=== PATIENT | male | born 1935 | race Caucasian/White ===

== ENCOUNTER 2016-06-27 06:13 | Day surgery (SDC) | payer MEDICARE, OTHER ==
[~2016-06-27 06:13] MED LIST: ALEVE220 M4 PO; AMARYL4 M1 PO; AMARYL4 MG PO; AMOXICILLIN500 M PO; AMOXICILLIN500 M2 PO; ARTIFICIAL TEAR15 M; ASPIR-LOW81 M1 PO; ASPIR-LOW81 MG PO; AUGMENTIN 875-1 EAC1 PO; CALCIUM 600 +1 EA14 PO; CALCIUM600 MG PO; CARVEDILOL3.125 MG PO; CIPRO XR500 MG; COREG3.125 M1 PO; CRESTOR10 MG; CRESTOR10 MG/TAB PO; FLOMAX0.4 M1 PO; FLONASE ALLERG9.9 ML; FLONASE16 G2 NS; GLUCOPHAGE500 M3 PO; GLUCOPHAGE500 MG PO; JANUVIA50 M1 PO; JANUVIA50 MG PO; LISINOPRIL10 M1 PO; LISINOPRIL10 MG PO; MILK OF MAGNESIA PO; MULTIVITAMIN1 CAP; PRAVASTATIN SOD40 M1 PO; RESTFUL LEGS PO; SULFAMYLON SOL250 M1 TOP; TRIAMCINOLONE A15 G2 TOP; TRIAMCINOLONE A15 GM TOP; ULTRAM50 M1 PO; XARELTO10 M1 PO
[2016-06-27 07:11] LABS: BASO % 0.2 % (0-2); EOS % 1.6 % (0-7); EOSINOPHIL ABSOLUTE COUNT 0.2 tho/cmm (0.0-0.7); HCT-HEMATOCRIT 42.1 % (36.0-53.5); HGB-HEMOGLOBIN 14.3 gm/dl (13.5-17.0); IMMATURE GRANULOCYTES ABSOLUTE 0.05 tho/cmm (0-0.03); IMMATURE GRANULOCYTES PERCENT 0.5 % (0-0.3); LYMPH % 16.3 % (20-45); LYMPH ABSOLUTE COUNT 1.8 tho/cmm (0.8-4.5); MCV (MEAN CELL VOLUME) 88.3 fl (82.0-96.0); MEAN PLATELET VOLUME 10.8 cmc (9.4-12.4); NEUTROPHILS % 72.4 % (40-80); PLATELET COUNT 231 tho/cmm (150-450); RED BLOOD COUNT 4.77 mil/cmm (4.40-5.70); RED CELL DISTRIBUTION WIDTH 13.2 % (12.4-16.4)
[2016-06-27 07:22] LABS: ANION GAP 13 mmol/L (0-20); BLOOD UREA NITROGEN 20 mg/dl (6-24); CALCIUM 8.9 mg/dl (8.5-10.5); CARBON DIOXIDE-VENOUS 27 mmol/L (22-32); CHLORIDE 104 mmol/l (96-110); CREATININE 1.26 mg/dl (0.60-1.30); GLUCOSE 149 mg/dL (70-110); POTASSIUM 4.1 mmol/L (3.7-5.1); SODIUM 140 mmol/L (135-145); eGFR VALUE FOR BLACK 63 mL/Min
== END 2016-06-27 13:30 ==
LOC: SRG 06:13 → SHSC 06:18 → ORW 09:41 → PACU 11:32 → SHSC 12:15
PROVIDERS: Surgery
PROC: 0DBP7ZZ Excision of Rectum, Via Natural or Artificial Opening (ICD-10-PCS; principal; 2016-06-27)
DX: D12.8 Benign neoplasm of rectum (principal); I25.10 Atherosclerotic heart disease of native coronary artery without angina pectoris; M19.90 Unspecified osteoarthritis, unspecified site; H91.90 Unspecified hearing loss, unspecified ear; J44.9 Chronic obstructive pulmonary disease, unspecified; K21.9 Gastro-esophageal reflux disease without esophagitis; E78.5 Hyperlipidemia, unspecified; M17.0 Bilateral primary osteoarthritis of knee; E11.43 Type 2 diabetes mellitus with diabetic autonomic (poly)neuropathy; K31.84 Gastroparesis; Z79.82 Long term (current) use of aspirin; Z79.84 Long term (current) use of oral hypoglycemic drugs; Z79.899 Other long term (current) drug therapy; Z88.1 Allergy status to other antibiotic agents; Z88.2 Allergy status to sulfonamides; Z91.048 Other nonmedicinal substance allergy status; Z89.411 Acquired absence of right great toe; Z95.2 Presence of prosthetic heart valve; Z96.651 Presence of right artificial knee joint; Z98.890 Other specified postprocedural states
CPT/HCPCS: C9290; J1335